=== PATIENT | female | born 1955 | race Caucasian/White ===

== ENCOUNTER 2023-07-06 09:15 | Day surgery (SDC) | payer OTHER ==
[2023-07-01 08:41] LABS: Absolute Lymphocytes (CBC) 2.1 K/uL (0.7-4.9); Hematocrit 39.4 % (36.0-45.0); Lymphocytes % 21.1 % (15.3-44.8); MCV 82.7 fL (80-100); MPV 8.8 fL (7.6-11.3); Platelets 298 thou/uL (152-406); RBC Red Blood Cell Count 4.77 M/uL (3.86-4.86)
--- NOTE | 2023-07-01 08:47 | RAD REPORT ---
EXAM DESCRIPTION: RAD - Chest Pa And Lat (2 Views) - 07/01/2023 8:42 am CLINICAL HISTORY: Pre op pending trigger finger release Chest pain. COMPARISON: Chest Pa And Lat (2 Views) dated 10/05/2021; Chest Pa And Lat (2 Views) dated 05/11/2019 FINDINGS: The lungs are clear. The heart is mildly enlarged in size. No displaced fractures. IMPRESSION: Upper limit normal cardiac silhouette. The USPSTF recommends annual screening for lung cancer with low-dose CT (LDCT) in adults aged 50 to 8 0 years who have a 20 pack-year smoking history and currently smoke or have quit within the past 15 y ears.
[2023-07-01 08:56] LABS: Potassium 3.8 mEq/L (3.5-5.1)
[2023-07-01 09:05] LABS: Protime INR 0.98
--- NOTE | 2023-07-02 14:10 | EKG ---
Test Date: 2023-07-01 Test Time: 09:14:21 Celery Packer: DEIDRA MEASUREMENT RESULTS: Intervals: Rate: 88 NV: 150 QRSD: 72 QT: 388 QTc: 469 [place]: P: 39 NV: 150 QRS: -10 T: 30 INTERPRETIVE STATEMENTS: Normal sinus rhythm Cannot rule out Anterior infarct, age undetermined Abnormal ECG Compared to ECG 06/25/2006 09:23:07 Myocardial infarct finding now present Electronically Signed On 07-02-23 14:07:19 HYDRATOR by Pierre Guthrie
[2023-07-06] MEDS ORDERED: KETOROLAC 30 MG/ML INJ ONE (10:43)
[2023-07-06] MEDS ORDERED: propofoL 200 MG/20 ML VIAL IV ONE (10:43)
[2023-07-06] MEDS ORDERED: ONDANSETRON 4 MG/2 ML VIAL ONE (10:45)
[2023-07-06] MEDS: BUPIVACAINE 0.25% PF 10 ML VIAL ONE ×2 (11:16→11:25)
[2023-07-06] MEDS ORDERED: CEFAZOLIN SODIUM 1 GM/VIAL ONE (11:22)
--- NOTE | 2023-07-06 11:40 | P.BOP ---
Preoperative diagnosis: right middle finger trigger finger Postoperative diagnosis: right middle finger A1 morales release Primary procedure: same Marketing Operations Manager: NONE,NONE Estimated blood loss: 2 cc Specimen: none Findings: see dictation Anesthesia: General Complications: None Implants: none Fluids & blood products: per anesthesia record; TT: 14 mins @ 250 mmHg Transferred to: Recovery Room Condition: Good
--- NOTE | 2023-07-06 11:44 | P.OP ---
Preoperative diagnosis: Right middle finger trigger digit Postoperative diagnosis: Same Primary procedure: Right middle finger A1 morales release Anesthesia: General Estimated blood loss: 2 cc Specimen: None Findings: see dictation Operative Technique: I discussed the patient at length her diagnosis as well as treatment plan. Patient failed conservative treat measures and had significant pain and difficulties with activities of daily living. We will proceed with right middle finger A1 morales release. Description of procedure: After informed consent was obtained the patient was identified in the preoperative holding area. The middle finger of the right hand was marked. Patient was then brought back to the operating room transferred the operative table in supine fashion and placed under general LMA anesthesia. The right upper extremity was then prepped and draped in usual sterile fashion. A timeout was initiated. The correct patient and procedure were confirmed and identified. The patient received her preoperative prophylactic antibiotics. The right upper extremity was exsanguinated using an Esmarch and the tourniquet was inflated to 250 mmHg. A 2 cm longitudinal incision was made over the middle finger A1 morales dissection was then taken down to the A1 morales. There was a cyst over the flexor tendon sheath which was excised using a 15 blade as well as tenotomies. A1 morales release was performed using a 15 blade and portion of the tendon sheath was excised to minimize risk of recurrence. The tendon was then brought out through the incision using a Ragnell retractor and there was full excursion of the tendon without triggering. The wound was then irrigated thoroughly with normal saline. The wound was approximated using a 5-0 Prolene. Sterile dressings were placed and the tourniquet was let down. Postoperative plan: The patient will follow-up in clinic in 10 days for wound check and suture removal. Complications: None Implants: none Fluids & blood products: per anesthesia record; TT: 14 mins @ 250 mmHg Transferred to: Recovery Room Condition: Good
[2023-07-06 13:44] VITALS: O2SAT 95
[2023-07-06 13:45] VITALS: BP 120/60; TEMP 97
== END 2023-07-06 13:00 | disposition home or self-care (01) ==
LOC: OR 09:15
PROVIDERS: ATTEND Orthopaedic Surgery Sports Medicine
PROC: 0LN70ZZ Release Right Hand Tendon, Open Approach (ICD-10-PCS; principal; 2023-07-06 11:00)
DX: M65.331 Trigger finger, right middle finger (principal); M79.644 Pain in right finger(s); I10 Essential (primary) hypertension; F32.A Depression, unspecified; F41.9 Anxiety disorder, unspecified
CPT/HCPCS: 93005; 85025; 80048; 36415; 85610; 82947 ×2; 85730; 71046; 26055; J2704; J2405; J0690